=== PATIENT | female | born 1960 | race Caucasian/White ===

== ENCOUNTER 2020-02-10 15:15 | Outpatient (RCR) | payer OTHER, SELFPAY ==
--- NOTE | 2019-12-29 13:54 | PTOPEVAL ---
Thank you for referring Kiah Stock to [facility]– [place].? The patient is scheduled to be seen for therapy? 4 x/week for 4 weeks. Please review, sign, date and return this plan of care OBEY. I agree with and certify that the following plan of care is medically necessary. Referring Physician Date Admitting Provider: Attending Provider: Chip Reilly MD Referring Provider: *PT Outpatient Evaluation Start: 12/29/19 12:31 Freq: Status: Active Protocol: Document 12/29/19 12:33 TLM (Rec: 12/29/19 13:23 TL [id number]) Therapy Assessment Status Assessment Status Assessment Status Evaluation Outpatient Past Medical History Past Medical History Source of Past Medical History Family/Significant Other Neurological History Hx Other Neurological Disorders Yes: GB Musculoskeletal History Hx Orthopedic Surgery Yes: cervical fusion Evaluation Information Problem Diagnosis Bilateral ankle contractures Cause GB syndrome Additional Evaluation Detail Pt lives with her . They are moving into a single level home with stairs to enter. plans to build a ramp to make it wc accessible. helps with ADLs, cleaning, cooking, driving, etc. Subjective Information Pt diagnosed with GB in Apr of Query Text:As Reported By Patient/ 2018 at [facility] in [place]. Family She spent 21 days in the ICU and was transferred to multiple facilties after. Denies illness prior to dx however gets frequent upper respiratory infections. Has been at [facility] for 11 months. Reports she received PT for 1 month before they discharged her and she was in restoritive therapy. Reports she was starting to walk and could walk with a WW very short distances with assist of multiple therapists. Has been using a manual wc for the past year as her primary means of mobility. Was on gabapentin, stopped taking it in October. Primary MD took her off all medication. Yazmin
--- NOTE | 2019-12-29 14:36 | PTOPEVAL ---
Thank you for referring Kiah Stock to [facility] [place].? The patient is scheduled to be seen for therapy? 2 x/week for 4 weeks. Please review, sign, date and return this plan of care OBEY. I agree with and certify that the following plan of care is medically necessary. Referring Physician Date Admitting Provider: Attending Provider: Chip Reilly MD Referring Provider: *PT Outpatient Evaluation Start: 12/29/19 12:31 Freq: Status: Active Protocol: Document 12/29/19 12:33 TLM (Rec: 12/29/19 13:23 TL [id number]) Therapy Assessment Status Assessment Status Assessment Status Evaluation Outpatient Past Medical History Past Medical History Source of Past Medical History Family/Significant Other Neurological History Hx Other Neurological Disorders Yes: GB Musculoskeletal History Hx Orthopedic Surgery Yes: cervical fusion Evaluation Information Problem Diagnosis Bilateral ankle contractures Cause GB syndrome Additional Evaluation Detail Pt lives with her . They are moving into a single level home with stairs to enter. plans to build a ramp to make it wc accessible. helps with ADLs, cleaning, cooking, driving, etc. Subjective Information Pt diagnosed with GB in Apr of Query Text:As Reported By Patient/ 2018 at [facility] in [place]. Family She spent 21 days in the ICU and was transferred to multiple facilties after. Denies illness prior to dx however gets frequent upper respiratory infections. Has been at [facility] for 11 months. Reports she received PT for 1 month before they discharged her and she was in restoritive therapy. Reports she was starting to walk and could walk with a WW very short distances with assist of multiple therapists. Has been using a manual wc for the past year as her primary means of mobility. Was on gabapentin, stopped taking it in October. Primary MD took her off all medication. Yazmin
--- NOTE | 2020-01-24 13:15 | PCPTNOTE ---
Patient called & cancelled scheduled appointment this date due to illness.
--- NOTE | 2020-01-27 17:08 | PTOPEVAL ---
PHYSICAL THERAPY PLAN OF CARE UPDATE AND PROGRESS REPORT Thank you for referring Kiah Stock to [facility].? The patient is scheduled to be seen for therapy? 1x/week for 5 weeks. Please review, sign, date and return this plan of care OBEY. I agree with and certify that the following plan of care is medically necessary. Referring Physician Date Attending Provider: Chip Reilly MD Progress Diagnosis Bilateral ankle contractures Cause GB syndrome Additional Evaluation Detail Pt lives with her . They are moving into a single level home with stairs to enter. plans to build a ramp to make it wc accessible. helps with ADLs, cleaning, cooking, driving, etc. Subjective Information Pt states that she is Query Text:As Reported By Patient/ constantly trying to use the Family feet and describes how she will sit in her recliner and try to do ankle range of motion and passive stretching of the ankles. She also states that she uses her feet throughout the day when she is pulling with her feet to move her wheelchair and she is going about her home. Pain Assessment Timing of Pain Assessment Timing of Pain Assessment Pre-Treatment Self Report Self Report Pain Level 0 Pain Score Pain Score 0: Self Report Lower Extremity Range of Motion Ankle/Foot Range of Motion Right Ankle Dorsiflextion With Knee Flexed -35 Range of Motion - Passive Ankle Plantarflexion Range of Motion - 40 Passive Ankle Eversion Range of Motion - Passive -15 Ankle Inversion Range of Motion - 20 Passive Ankle/Toe Range of Motion Limitations Bony Restriction,Contracture, Muscle Length Restriction, Muscle Weakness Foot/Toe Range of Motion Comments Pt rests in 40 degrees of PF and 20 degrees of inv. right ankle: ankle to move from 40deg plantarflexion to 38deg plantar flexion in reclined position; otherwise no changes in ROM of ankles Left Ankle Dorsiflextion With Knee Flexed -45 Range of Motion - Passive Ankle Plantarflexion Range of Motion - 45 Passive Ankle Eversion Range o
--- NOTE | 2020-02-14 13:52 | PCPTNOTE ---
Patient called & cancelled scheduled appointment this date due to not feeling well.
--- NOTE | 2020-02-22 16:43 | PCPTNOTE ---
Patient did not show up for scheduled appointment this date. Called patient and reminded her of her next appointment on 02/29/20 at 12:30PM.
--- NOTE | 2020-02-29 13:01 | PCPTNOTE ---
Patient did not show up for scheduled appointment this date.
--- NOTE | 2020-02-29 13:01 | PCPTNOTE ---
PHYSICAL THERAPY DISCHARGE NOTE Attending Provider: Chip Reilly MD Patient:Kiah Stock Date of :1960 Patient has not returned for any further treatments since 02/10/2020, therefore she will be discharged at this time due to non-compliance to attendance policy. Patient?s initial visit was on 12/29/2019 and had a total of 8 visits and no showed or cancelled 4 visits. Her last re-assessment note was performed and sent on 01/27/2020. The goals have not been met. Thank you for referring this patient to [facility]. Please review, sign, date and return this discharge summary OBEY. I have been updated about the patient's current status and I agree with discharge from the above service at this time. Referring Physician Date
== END 2020-03-01 07:43 | disposition home or self-care (01) ==
LOC: ANHPT 15:15
PROVIDERS: PCP Family Medicine; Visit Provider Orthopaedic Surgery
DX: M67.01 Short Achilles tendon (acquired), right ankle (principal); M67.02 Short Achilles tendon (acquired), left ankle
CPT/HCPCS: 97110; 97140; 97161

== ENCOUNTER 2021-01-24 16:12 | Outpatient (CLI) | payer OTHER, SELFPAY ==
[2021-01-24 20:16] LABS: Add Urine Microscopic? YES; Appearance Urine Cloudy (Clear); Bacteria Urine Trace /hpf; Bilirubin Urine Negative (Negative); Blood Urine Negative (Negative); Color Urine Yellow (Yellow); Glucose Urine UA Negative (Negative); Ketones Urine Negative (Negative); Leukocyte Esterase Ur Trace LEU/UL (NEGATIVE); Mucus Urine Few /lpf; Nitrate Urine Positive (Negative); Protein Urine Negative (Negative); RBC Urine 0-2 /hpf (0-2); Specific Grav Ur 1.023 (1.001-1.035); Squamous Epithelial Cell Urine Rare /hpf (Few); Urobilinogen Urine Negative mg/dL (<2.0)
== END 2021-01-24 16:13 | disposition home or self-care (01) ==
LOC: ANHBWCLAB 16:38
PROVIDERS: PCP Family Medicine; Visit Provider Family Medicine
DX: N30.90 Cystitis, unspecified without hematuria (principal)
CPT/HCPCS: 81001; 87077; 87086; 87088; 87186

== ENCOUNTER 2022-07-23 15:26 | Outpatient (CLI) | payer OTHER, SELFPAY ==
[2022-07-23 18:24] LABS: Basophils Percent Auto 0.2 % (0.2-1.2); Eosinophils Absolute Auto 0.1 K/mm3 (0-0.3); Eosinophils Percent Auto 0.9 % (0-4.4); Hematocrit 43.9 % (37.0-47.0); Hemoglobin 14.3 g/dL (12.0-15.0); Immature Granulocyte Absolute 0.01 K/mm3 (0.00-0.031); Immature Granulocyte Percent A 0.2 % (0-0.5); Lymphocytes Absolute Auto 1.31 K/mm3 (0.9-3.2); Lymphocytes Percent Auto 23.5 % (18.3-44.2); Mean Corpuscular HGB Conc 32.6 g/dl (32-36); Mean Corpuscular Hemoglobin 29.5 pg (26-34); Mean Corpuscular Volume 90.7 fl (80-100); Mean Platelet Volume 9.5 fl (7.4-10.4); Monocytes Absolute Auto 0.3 K/mm3 (0.1-0.6); Monocytes Percent Auto 5.9 % (2.6-8.5); Neutrophils Absolute Auto 3.9 K/mm3 (1.3-6.7); Neutrophils Percent Auto 69.3 % (45.5-73.1); Platelet Count Result 281 k/mm3 (150-375); Red Blood Count 4.84 M/mm3 (4.2-5.4); Red Cell Distribution Width 13.7 % (11.5-14.5); White Blood Count 5.6 K/mm3 (4.5-10.0)
[2022-07-23 19:10] LABS: Alanine Aminotransferase 18 U/L (6-35); Albumin Level 4.7 g/dL (3.5-5.1); Alkaline Phosphatase 90 U/L (38-126); Anion Gap 6 mmol/L (8-16); Aspartate Amino Transferase 30 U/L (14-36); Bilirubin,Total 0.6 mg/dL (0.2-1.3); Blood Urea Nitrogen 16 mg/dL (7-17); Carbon Dioxide 31 mmol/L (22-30); Chloride 101 mmol/L (98-107); Cholesterol 291 mg/dL (0-200); Estimated Glomerular Filt Rate > 60; Glucose 88 mg/dL (65-110); HDL Direct 64 mg/dL; Potassium 4.3 mmol/L (3.4-5.0); Sodium 138 mmol/L (137-145); Triglycerides 82 mg/dL (<150)
[2022-07-23 19:21] LABS: LDL Cholesterol Direct 147 mg/dL
[2022-07-23 19:43] LABS: Vitamin D 25 Hydroxy 31.7 ng/mL
[2022-07-23 20:48] LABS: Hemoglobin A1C 5.2 % (<5.7)
[2022-07-23 21:23] LABS: Appearance Urine Cloudy (Clear); Bacteria Urine None Seen /hpf; Bilirubin Urine Negative (Negative); Blood Urine Negative (Negative); Color Urine Yellow (Yellow); Glucose Urine UA Negative (Negative); Ketones Urine Negative (Negative); Leukocyte Esterase Ur Negative LEU/UL (NEGATIVE); Nitrate Urine Negative (Negative); Non Pathogenic Casts 0-2; Protein Urine Negative (Negative); RBC Urine 0-2 /hpf (0-2); Specific Grav Ur 1.014 (1.001-1.035); Squamous Epithelial Cell Urine None seen /hpf (Few); Urobilinogen Urine 0.2 mg/dL (<2.0); WBC Urine 0-5 /hpf (0-3)
[2022-07-23 21:26] LABS: Add Urine Microscopic? YES
== END 2022-07-23 15:27 | disposition home or self-care (01) ==
LOC: ANHBWCLAB 15:31
PROVIDERS: PCP Family Medicine; Visit Provider Nurse Practitioner Family
DX: R32 Unspecified urinary incontinence (principal); R35.0 Frequency of micturition; Z00.00 Encounter for general adult medical examination without abnormal findings; R79.89 Other specified abnormal findings of blood chemistry
CPT/HCPCS: 36415; 80053; 80061; 81001; 82306; 83036; 85025